=== PATIENT | female | born 1975 | race Caucasian/White ===

== ENCOUNTER 2023-10-17 09:02 | Observation (INO) | payer SELFPAY ==
[2023-10-17] MEDS ORDERED: Morphine 4 MG/ML VIAL ONE ×2 (09:36→11:00)
[2023-10-17] MEDS ORDERED: Ondansetron PF 4 MG/2 ML Vial ONE ×4 (09:37→17:06)
[2023-10-17 09:39] LABS: #Basophils 0.05 10x3/uL (0.0-0.2); #Eosinphils Less than 0.03 10x3/uL (0.0-0.7); %Basophils 0.4 % (0.0-1.0); %Monocytes 11.4 % (0.0-10.0); %Neutrophils 65.8 % (42.0-75.0); Hemoglobin 15.8 g/dL (12.0-16.0); Mean Corpuscular HGB CONC 35.1 g/dL (32.0-36.0); Mean Corpuscular Hemoglobin 32.4 pg (27.0-31.0); Mean Corpuscular Volume 92.4 fL (78.0-98.0); Mean Platelet Volume 10.3 fL (7.4-10.4); Platelet Count 197 10x3/uL (130-400); RBC Distribution Width 13.3 % (11.5-14.5); Red Blood Cell (RBC) Count 4.87 mill/uL (4.20-5.40)
[2023-10-17 09:48] LABS: BHCG - Serum Negative (NEGATIVE); Pregs Control Background? CLEAR/WHITE (CLR/WHITE); Pregs Control Bar Appear? YES (CONTROL BAR)
[2023-10-17 10:06] LABS: ALT (SGPT) 50 U/L (8-55); AST (SGOT) 23 U/L (5-34); Albumin 4.1 g/dL (3.5-5.0); Alkaline Phosphatase 58 U/L (40-110); Anion Gap 16 mmol/L (10-20); BUN (Urea Nitrogen) 18 mg/dL (7.0-18.7); Calc. Creatinine Clearance 0 mL/min (70-130); Calcium 9.3 mg/dL (7.8-10.44); Carbon Dioxide 24 mmol/L (22-29); Chloride 102 mmol/L (98-107); Estimated GFR 108; Glucose 91 mg/dL (70-105); Lipase 16 U/L (8-78); Potassium 3.3 mmol/L (3.5-5.1); Protein, Total 7.1 g/dL (6.0-8.3); Sodium 139 mmol/L (136-145)
[2023-10-17 10:07] LABS: Troponin I Less than 0.010 ng/mL (< 0.028)
[2023-10-17 10:15] LABS: Bilirubin Negative (Negative); Blood, Urine 2+ (Negative); CAUTI Indications for Culture Pelvic or flank pain; Clarity Clear (Clear); Glucose, Urine (Dipstick) Normal (Negative); Ketone, Urine 10 mg/dL (Negative); Leukocyte Negative Leu/uL (Negative); Nitrite Negative (Negative); Protein, Urine (Dipstick) Negative (Neg-Trace); Specific Gravity, Urine 1.012 (1.002-1.036); Squamous Epithelial 0-3 HPF (0-3); Urobilinogen Normal mg/dL (Less than 2); WBC/HPF 0-3 HPF (0-3)
[2023-10-17 10:16] LABS: Bacteria/HPF 1+ HPF (None Seen); Urine Culture Reflex No No
[2023-10-17] MEDS ORDERED: HYDROmorphone 0.5 MG/0.5 ML SYRINGE ONE (11:39)
[2023-10-17] MEDS ORDERED: Acetaminophen 500 MG TAB ONE (11:39)
[2023-10-17] MEDS ORDERED: Iopamidol-370 76% 500 ML MDV (1 ML CHARGE) ONE (12:17)
[2023-10-17] MEDS ORDERED: hydrALAZINE 20 MG/ML VIAL SLOW IVP PRN (14:33)
[2023-10-17] MEDS ORDERED: Ondansetron ODT 4 MG TAB PO PRN (14:35)
[2023-10-17] MEDS ORDERED: Acetaminophen 650 MG Suppository PR PRN (14:35)
[2023-10-17] MEDS ORDERED: Morphine 4 MG/ML VIAL SLOW IVP PRN (14:41)
[2023-10-17] MEDS ORDERED: Electrolyte Replacement Protocol 1 EACH FS SCH (14:45)
[2023-10-17] MEDS ORDERED: Lidocaine 2% PF 5 ML VIAL ONE (14:54)
[2023-10-17] MEDS ORDERED: PROPOFOL 20 ML ONE ×2 (14:54→15:17)
[2023-10-17] MEDS ORDERED: Iopamidol 30 ML ONE (14:55)
[2023-10-17] MEDS ORDERED: Sodium Chloride 0.9% 100 ML ONE (15:00)
[2023-10-17] MEDS ORDERED: CEFAZOLIN 2 GM VIAL ONE (15:00)
[2023-10-17] MEDS ORDERED: fentaNYL PF 100 MCG/2 ML SYRINGE ONE (15:00)
[2023-10-17] MEDS ORDERED: Midazolam HCl 2 mg/2 ml Vial ONE (15:04)
[2023-10-17] MEDS ORDERED: hydrALAZINE 20 MG/ML VIAL ONE ×2 (16:37→16:57)
[2023-10-17] MEDS: Sodium Chloride 0.9% 1,000 ML IV SCH (18:05)
[2023-10-17 18:09] VITALS: BMI 21.1
[2023-10-17] MEDS: Acetaminophen 325 MG TAB PO PRN (18:20)
[2023-10-17] MEDS: Ondansetron PF 4 MG/2 ML Vial IVP PRN (18:20)
[2023-10-17] MEDS: Ketorolac Tromethamine 30 MG (1 mL) VIAL IVP SCH (19:36)
[2023-10-17] MEDS: Promethazine HCl 25 MG in Sodium Chloride 0.9% 50 ML IVPB SCH (19:36)
[2023-10-17] MEDS: Famotidine/PF 20 mg/2ml Vial SLOW IVP SCH (19:37)
[2023-10-17] MEDS: Potassium Chloride 20 MEQ in Premix 1 BAG IVPB SCH (23:50)
[2023-10-18 06:13] LABS: #Basophils 0.04 10x3/uL (0.0-0.2); #Eosinphils Less than 0.03 10x3/uL (0.0-0.7); %Basophils 0.5 % (0.0-1.0); %Lymphocytes 28.2 % (21.0-51.0); %Monocytes 10.6 % (0.0-10.0); %Neutrophils 60.4 % (42.0-75.0); Hematocrit 40.3 % (36.0-47.0); Hemoglobin 13.9 g/dL (12.0-16.0); Mean Corpuscular HGB CONC 34.5 g/dL (32.0-36.0); Mean Corpuscular Hemoglobin 32.6 pg (27.0-31.0); Mean Corpuscular Volume 94.6 fL (78.0-98.0); Mean Platelet Volume 11.1 fL (7.4-10.4); Platelet Count 171 10x3/uL (130-400); RBC Distribution Width 13.6 % (11.5-14.5); Red Blood Cell (RBC) Count 4.26 mill/uL (4.20-5.40)
[2023-10-18 06:40] LABS: Anion Gap 11 mmol/L (10-20); BUN (Urea Nitrogen) 11 mg/dL (7.0-18.7); Calc. Creatinine Clearance 102 mL/min (70-130); Calcium 8.1 mg/dL (7.8-10.44); Carbon Dioxide 23 mmol/L (22-29); Chloride 108 mmol/L (98-107); Estimated GFR 109; Glucose 76 mg/dL (70-105); Potassium 3.7 mmol/L (3.5-5.1); Sodium 138 mmol/L (136-145)
[2023-10-18 09:17] VITALS: BP 147/81; TEMP 98.1
== END 2023-10-18 12:32 | disposition home or self-care (01) ==
LOC: ERS 09:02 → SDC 13:51 → T4-B 14:00
PROVIDERS: ADMIT Family Medicine; ATTEND Internal Medicine
PROC: 0T768DZ Dilation of Right Ureter with Intraluminal Device, Via Natural or Artificial Opening Endoscopic (ICD-10-PCS; principal; 2023-10-17)
PROC: 0T7D8ZZ Dilation of Urethra, Via Natural or Artificial Opening Endoscopic (ICD-10-PCS; 2023-10-17)
DX: N13.2 Hydronephrosis with renal and ureteral calculous obstruction (principal); N35.92 Unspecified urethral stricture, female; I10 Essential (primary) hypertension; F17.210 Nicotine dependence, cigarettes, uncomplicated; Z88.6 Allergy status to analgesic agent
CPT/HCPCS: 36415; 71045; 74177; 74420; 80048; 80053; 81001; 83690; 84484; 84703; 85025; 87086; 93005; C2617; G0378; J0360; J1170; J1885; J2001; J2250; J2270; J2405; J2550; J2704; J3480; J3490; J7050; Q9967; S0028

== ENCOUNTER 2023-11-08 12:50 | Outpatient (CLI) | payer SELFPAY ==
[2023-11-08 14:38] LABS: Hematocrit 43.6 % (34.9-44.5); Hemoglobin 15.3 g/dL (12.0-15.5); Mean Corpuscular HGB CONC 35.1 g/dL (32.0-36.0); Mean Corpuscular Hemoglobin 32.8 pg (27.0-33.0); Mean Corpuscular Volume 93.6 fL (81.6-98.3); Mean Platelet Volume 11.5 fL (7.4-10.4); Platelet Count 189 10x3/uL (150-450); RBC Distribution Width 13.4 % (11.5-14.5); Red Blood Cell (RBC) Count 4.66 10x6/uL (3.90-5.03); White Blood Cell (WBC) Count 8.5 10x3/uL (3.5-10.5)
[2023-11-08 14:46] LABS: PTT 25.2 sec (22.0-33.0); Prothrombin Time 10.9 sec (9.5-12.1)
[2023-11-08 14:49] LABS: Anion Gap 15 mmol/L (10-20); BUN (Urea Nitrogen) 11 mg/dL (7.0-18.7); Calc. Creatinine Clearance 0 mL/min (70-130); Calcium 9.2 mg/dL (7.8-10.44); Carbon Dioxide 24 mmol/L (22-29); Chloride 104 mmol/L (98-107); Estimated GFR 108; Glucose 77 mg/dL (70-105); Sodium 139 mmol/L (136-145)
== END 2023-11-08 12:51 | disposition home or self-care (01) ==
LOC: LABBT 12:50
PROVIDERS: ATTEND Urology
DX: Z01.812 Encounter for preprocedural laboratory examination (principal); N20.1 Calculus of ureter
CPT/HCPCS: 80048; 85027; 85610; 85730; 87086

== ENCOUNTER → 2023-11-14 | Day surgery (SDC) | payer SELFPAY ==
[2023-11-08 13:34] VITALS: BMI 20.3
[~2023-11-14] MED LIST: CEFAZOLIN 2 GM VIAL ONE; Dexamethasone 20 MG/5 ML VIAL ONE; HYDROcodone/Acetaminophen 5/325 mg Tablet ONE; Iopamidol 15 ML ONE; Lidocaine 1% PF 5 ML VIAL ONE; Meperidine HCl/PF 25 MG (1 mL) VIAL ONE; Midazolam HCl 2 mg/2 ml Vial ONE; Ondansetron PF 4 MG/2 ML Vial ONE; PROPOFOL 20 ML ONE; Rocuronium Bromide 10 MG/ML (10ML VIAL) ONE; SUGAMMADEX SODIUM 200 MG/2 ML VIAL ONE; Scopolamine 1 mg/72 hour Patch ONE; Sodium Chloride 0.9% 100 ML ONE; fentaNYL 50 mcg/mL 1 mL Vial ONE
== END ==
LOC: SDC 10:48
PROVIDERS: ATTEND Urology
PROC: 0TC68ZZ Extirpation of Matter from Right Ureter, Via Natural or Artificial Opening Endoscopic (ICD-10-PCS; principal; 2023-11-14)
PROC: 0T768DZ Dilation of Right Ureter with Intraluminal Device, Via Natural or Artificial Opening Endoscopic (ICD-10-PCS; principal; 2023-11-14)
DX: N20.1 Calculus of ureter (principal); I10 Essential (primary) hypertension; F32.A Depression, unspecified; M54.9 Dorsalgia, unspecified; Z98.890 Other specified postprocedural states; Z88.6 Allergy status to analgesic agent; Z79.899 Other long term (current) drug therapy
CPT/HCPCS: 82365; 88300; C1747; C1769; C2617; J1100; J2175; J2250; J2405; J2704; J3010; Q9967

== ENCOUNTER 2024-12-23 10:27 | Emergency (ER) | payer OTHER ==
[2024-12-23 11:23] LABS: #Basophils 0.07 10x3/uL (0.0-0.2); #Eosinophils Less than 0.03 10x3/uL (0.0-0.7); #Monocytes 0.53 10x3/uL (0.11-0.59); #Neutrophils 4.36 10x3/uL (1.40-6.50); %Basophils 0.9 % (0.0-1.0); %Eosinophils 0.0 % (0.0-10.0); %Lymphocytes 34.0 % (21.0-51.0); %Monocytes 7.0 % (0.0-10.0); %Neutrophils 57.8 % (42.0-75.0); Hematocrit 47.7 % (36.0-47.0); Hemoglobin 16.0 g/dL (12.0-16.0); Mean Corpuscular Hemoglobin 31.1 pg (27.0-31.0); Mean Corpuscular Volume 92.8 fL (78.0-98.0); Platelet Count 212 10x3/uL (130-400); Red Blood Cell (RBC) Count 5.14 mill/uL (4.20-5.40); White Blood Cell (WBC) Count 7.55 10x3/uL (4.8-10.8)
[2024-12-23 11:36] LABS: BHCG - Serum Negative (NEGATIVE); Pregs Control Background? CLEAR/WHITE (CLR/WHITE); Pregs Control Bar Appear? YES (CONTROL BAR)
[2024-12-23 11:59] LABS: ALT (SGPT) 9 U/L (Less than 34); AST (SGOT) 17 U/L (11-34); Albumin 2.0 g/dL (3.1-4.5); Alkaline Phosphatase 29 U/L (40-110); Anion Gap 5 mmol/L (10-20); BUN (Urea Nitrogen) 7 mg/dL (7.0-18.7); Bilirubin, Total 0.4 mg/dL (0.3-1.2); Calc. Creatinine Clearance 0 mL/min (70-130); Calcium 4.4 mg/dL (7.8-10.44); Carbon Dioxide 16 mmol/L (22-29); Chloride 124 mmol/L (98-107); Globulin 1.5 g/dL (2.4-3.5); Glucose 54 mg/dL (70-105); Potassium 2.0 mmol/L (3.5-5.1); Sodium 143 mmol/L (136-145)
[2024-12-23 12:36] LABS: ALT (SGPT) 16 U/L (Less than 34); AST (SGOT) 23 U/L (11-34); Albumin 4.1 g/dL (3.1-4.5); Alkaline Phosphatase 60 U/L (40-110); Anion Gap 12 mmol/L (10-20); BUN (Urea Nitrogen) 11 mg/dL (7.0-18.7); Bilirubin, Total 0.8 mg/dL (0.3-1.2); Calc. Creatinine Clearance 0 mL/min (70-130); Calcium 8.9 mg/dL (7.8-10.44); Carbon Dioxide 29 mmol/L (22-29); Chloride 103 mmol/L (98-107); Globulin 2.8 g/dL (2.4-3.5); Glucose 86 mg/dL (70-105); Magnesium 2.1 mg/dL (1.6-2.6); Potassium 3.5 mmol/L (3.5-5.1); Sodium 140 mmol/L (136-145)
== END 2024-12-23 14:07 | disposition home or self-care (01) ==
LOC: ERS 10:27
DX: I10 Essential (primary) hypertension (principal); F17.210 Nicotine dependence, cigarettes, uncomplicated; Z79.899 Other long term (current) drug therapy
CPT/HCPCS: 70450; 80053; 83735; 84703; 85025; 93005

== ENCOUNTER 2025-01-27 09:27 | Outpatient (CLI) | payer OTHER | END 2025-01-27 09:28 | disposition home or self-care (01) | LOC: BICRAD 09:27 | PROVIDERS: ATTEND Family Medicine | DX: M25.532 Pain in left wrist (principal) ==

== ENCOUNTER 2025-02-07 09:19 | Outpatient (CLI) | payer OTHER ==
[2025-02-07] MEDS ORDERED: Sincalide 5 MCG VIAL ONE (10:57)
[2025-02-07] MEDS ORDERED: Bacteriostatic Normal Saline 30 ML VIAL ONE (10:58)
== END 2025-02-07 09:20 | disposition home or self-care (01) ==
LOC: NM 09:19
PROVIDERS: ATTEND Family Medicine
DX: R10.11 Right upper quadrant pain (principal); K82.4 Cholesterolosis of gallbladder
CPT/HCPCS: 78227; A9537; J2805

== ENCOUNTER 2025-02-21 07:41 | Outpatient (CLI) | payer OTHER ==
[2025-02-21] MEDS ORDERED: Iopamidol 370 76% 100 ML VIAL ONE (11:48)
== END 2025-02-21 07:42 | disposition home or self-care (01) ==
LOC: CT 07:41
PROVIDERS: ATTEND Family Medicine
DX: E26.9 Hyperaldosteronism, unspecified (principal); E27.8 Other specified disorders of adrenal gland
CPT/HCPCS: 74170; Q9967